=== PATIENT | male | born 1950 | race Caucasian/White ===

== ENCOUNTER 2022-11-05 08:02 | Day surgery (SDC) | payer MEDICARE, OTHER, SELFPAY ==
--- NOTE | 2022-11-04 09:50 | HO.ANESPROP2 ---
Documented by User: Erika Tatum NP 11/04/22 09:58 HPI - Anesthesia Eval Consult details Narrative: 72yo M for Colonoscopy [facility] Past Medical History Medical History (Updated 11/04/22 @ 09:53 by Erika Tatum NP) Cluster headaches HLD (hyperlipidemia) Non-insulin dependent type 2 diabetes mellitus Stroke Surgical History Surgical History (Updated 11/04/22 @ 09:56 by Erika Tatum NP) Hx of basal cell carcinoma excision Hx of cholecystectomy Social History Social History Patient Tobacco Use Status: Current everyday Tobacco user Tobacco use type: Cigarette Cigarette Packs Per Day: 0.5 Cigarettes Per Day: 10.0 Use of substances other than those prescribed or required for medical reasons: Yes Substance Use Frequency: Occasionally Advance Directives: No Advance Directives Information Provided: Yes Nutrition Risks: No Nutritional Risk Meds Allergies Allergy/AdvReac Type Severity Reaction Status Date / Time codeine AdvReac Stomach Verified 11/05/22 08:19 Upset Home Medications Medication Instructions Recorded Confirmed Last Taken Type aspirin 25 mg-dipyridamole 200 mg 1 cap PO BID 11/04/22 11/04/22 Unknown History capsule,ext.release 12 hr multiphase glipizide 5 mg tablet, extended 1 tab PO BID 11/04/22 11/04/22 Unknown History release 24 hr lisinopril 2.5 mg tablet 1 tab PO DAILY 11/04/22 11/04/22 Unknown History metformin 500 mg tablet,extended 2 tab PO QAM 11/04/22 11/04/22 Unknown History release 24 hr verapamil 240 mg tablet,extended 1 tab PO BEDTIME 11/04/22 11/04/22 Unknown History release Exam Exam Date and Time: November 04, 2022 0950 Assessment and Plan Assessment Anesthesia Assessment: Chart Reviewed Documented by User: Jojo Strong MD 11/05/22 09:04 [facility] Past Medical History Medical History (Updated 11/04/22 @ 09:53 by Erika Tatum NP) Cluster headaches HLD (hyperlipidemia) Non-insulin dependent type 2 diabetes mellitus Stroke Family History Family history of problems with anesthesia: No Surgical History Surgical History (Updated 11/04/22 @ 09:56 by Erika Tatum NP) Hx of basal cell carcinoma excision Hx of cholecystectomy History of Problems with Anesthesia: No Social History Social History Patient Tobacco Use Status: Current everyday Tobacco user Tobacco use type: Cigarette Cigarette Packs Per Day: 0.5 Cigarettes Per Day: 10.0 Use of substances other than those prescribed or required for medical reasons: Yes Substance Use Frequency: Occasionally Advance Directives: No Advance Directives Information Provided: Yes Nutrition Risks: No Nutritional Risk Meds Allergies Allergy/AdvReac Type Severity Reaction Status Date / Time codeine AdvReac Stomach Verified 11/05/22 08:19 Upset Home Medications Medication Instructions Recorded Confirmed Last Taken Type aspirin 25 mg-dipyridamole 200 mg 1 cap PO BID 11/04/22 11/04/22 Unknown History capsule,ext.release 12 hr multiphase glipizide 5 mg tablet, extended 1 tab PO BID 11/04/22 11/04/22 Unknown History release 24 hr lisinopril 2.5 mg tablet 1 tab PO DAILY 11/04/22 11/04/22 Unknown History metformin 500 mg tablet,extended 2 tab PO QAM 11/04/22 11/04/22 Unknown History release 24 hr verapamil 240 mg tablet,extended 1 tab PO BEDTIME 11/04/22 11/04/22 Unknown History release Exam Airway Mallampati Class: II TM Dist: >3cm Loose/Missing/Broken Teeth: Yes and Lower Heart: rr Lungs: cta Assessment and Plan Final Anesthetic Review Family History of Problems with Anesthesia: No History of Problems with Anesthesia: No NPO: Yes ASA Class: II Final Preanesthetic Review: No Changes in Pt Med Stat Patient Risk: Low Procedure Risk: Low Anesthetic Plan Anesthetic Plan: MAC:
[2022-11-05 08:39] LABS: Glucose, Whole Blood 183 mg/dL (60-115)
[2022-11-05 08:44] VITALS: BP 133/69; PULSE 82; RESP 16; TEMP 36.2; O2SAT 97; BMI 25.1
[2022-11-05] MEDS: Lactated Ringers 1,000 ML 100 ML IVCONT (08:47)
[2022-11-05 10:07] VITALS: BP 90/50; PULSE 71; RESP 8; TEMP 36.1; O2SAT 94
--- NOTE | 2022-11-05 10:10 | PM.OP ---
Brief Operative Note Date of Service: 11/05/22 Pre-op diagnosis: Screening Post-op diagnosis: other (Polyps) Surgeon: Jaden Mendez Anesthesia: MAC Was an Sales Development Coordinator used for this Procedure?: No Estimated blood loss (mL): 0 Pathology: other (A. Polyp at 60cm B. Ascending colon polyp) Condition: stable Disposition: PACU
[2022-11-05 10:31] VITALS: BP 121/60; PULSE 71; RESP 18; TEMP 36.6; O2SAT 96
--- NOTE | 2022-11-05 11:05 | OP_ITS ---
SURGEON: Jaden Mendez MD INDICATIONS: The patient presents for evaluation of colorectal cancer screening and personal history of tubular adenomas. Full consent has been obtained from him for this, including risks of bleeding and perforation. PREOPERATIVE DIAGNOSIS: Colorectal cancer screening and personal history of tubular adenoma of the colon. POSTOPERATIVE DIAGNOSIS: PROCEDURE PERFORMED: Colonoscopy to the cecum and terminal ileum with hot snare polypectomy x 2 and placement of resolution clip on ascending colon polypectomy site. ESTIMATED BLOOD LOSS: COMPLICATIONS: ANESTHESIA: Monitored anesthesia care. ASSISTANTS: SPECIMENS: POSTOPERATIVE DIAGNOSES: Colorectal cancer screening and personal history of tubular adenoma of the colon, colon polyps, diverticulosis, and internal hemorrhoids. DESCRIPTION OF PROCEDURE: The patient was placed in the left lateral decubitus position. The digital rectal exam revealed no abnormalities. The Olympus video pediatric colonoscope was entered into the rectum and advanced easily to the cecum. As the scope was being advanced to the cecum, I did visualize a polyp at 60 cm. This was approximately 8 to 10 mm in diameter and was removed by hot snare polypectomy and recovered by suction. The polypectomy site appeared clean, without any sign of residual polyp nor bleeding. Once in the cecum, I did identify a normal-appearing cecal pouch with appendiceal orifice and a normal-appearing ileocecal valve. The terminal ileum was cannulated and appeared normal. The scope was withdrawn back in the colon. The entire cecum and ileocecal valve appeared normal. The scope was then slowly withdrawn assessing all mucosal surfaces carefully. Preparation was excellent. In the proximal ascending colon, was an approximately 8 to 10 mm polyp, which was removed by hot snare polypectomy and recovered by suction. The polypectomy site appeared clean, without any sign of residual polyp nor bleeding. A single resolution clip was applied to the polypectomy site with good deployment and good hemostasis given that he has to go back on his Aggrenox. I was not able to find the polypectomy site at 60 cm and therefore a clip was not applied.. I did not visualize any other polyps, colitis, nor angiodysplasia. There was a moderate amount of sigmoid diverticulosis. In the rectum, scope was retroflexed visualizing small internal hemorrhoids, but no other pathology. The rectal mucosa appeared normal. The scope was straightened and withdrawn from the patient. He tolerated the procedure well and was returned to the recovery area in stable condition. IMPRESSION: 1. Colon polyps. 2. Diverticulosis. 3. Internal hemorrhoids. PLAN: The results of the pathology will be checked. Given his age and these relatively minimal findings, I do not think he would need any further screening colonoscopies in the future. He was advised to resume his Aggrenox in 72 hours. He will otherwise see me on a p.r.n. basis. MD STARR Joyce/CAITLIN / [id number] MTDStuart
== END 2022-11-05 11:15 | disposition home or self-care (01) ==
PROVIDERS: PCP Physician Assistant Medical; Visit Provider Internal Medicine
PROC: 0DJD8ZZ Inspection of Lower Intestinal Tract, Via Natural or Artificial Opening Endoscopic (ICD-10-PCS; CPT 45378; principal; 2022-11-05 09:20)
DX: Z12.11 Encounter for screening for malignant neoplasm of colon (principal); D12.2 Benign neoplasm of ascending colon; D12.6 Benign neoplasm of colon, unspecified; K57.30 Diverticulosis of large intestine without perforation or abscess without bleeding; K64.8 Other hemorrhoids; Z86.010 Personal history of colon polyps; E11.9 Type 2 diabetes mellitus without complications; E78.5 Hyperlipidemia, unspecified; F17.210 Nicotine dependence, cigarettes, uncomplicated; Z86.73 Personal history of transient ischemic attack (TIA), and cerebral infarction without residual deficits; Z79.82 Long term (current) use of aspirin; Z79.84 Long term (current) use of oral hypoglycemic drugs; Z79.899 Other long term (current) drug therapy
CPT/HCPCS: 45385; 82947; 88305